=== PATIENT | female | born 1980 | race Caucasian/White ===

== ENCOUNTER 2019-01-11 14:09 | Emergency (ER) | payer OTHER ==
[~2019-01-11] VITALS: Ht 175.3 cm; Wt 129.3 kg
[2019-01-11 14:31] VITALS: BP 138/75
[2019-01-11] MEDS ORDERED: ZYPREXA2.5 MG PO ×2 (14:36→15:11)
[2019-01-11] MEDS ORDERED: NUVIGIL250 MG PO ×2 (14:36→15:11)
[2019-01-11] MEDS ORDERED: PROPRANOLOL 1010 MG PO ×2 (14:36→15:11)
== END 2019-01-11 14:46 | disposition home or self-care (01) ==
LOC: M.ERS 14:09
DX: Z76.0 Encounter for issue of repeat prescription (principal); F84.0 Autistic disorder